=== PATIENT | female | born 1965 | race Caucasian/White ===

== ENCOUNTER 2018-05-06 22:51 | Emergency (ER) | payer OTHER ==
[~2018-05-06] VITALS: Ht 170.2 cm; Wt 63.5 kg
[2018-05-07] MEDS ORDERED: COLACE100 M1 PO (00:13)
[2018-05-07] MEDS ORDERED: PROCTOFOAM-HC 110 GM RC (00:13)
[2018-05-07] MEDS ORDERED: ANUSOL-HC25 M1 RC (00:13)
--- NOTE | 2018-05-07 00:14 | ED GI/GU/ABDOMINAL COMPLAINT ---
History of Present Illness General Chief Complaint: General Adult Stated Complaint: "HERNIA IN MY BUTT" PER PT Source: patient Exam Limitations: no limitations Vital Signs & Intake/Output Vital Signs & Intake/Output Vital Signs Date Time Temp Pulse Resp B/P B/P Pulse O2 O2 Flow FiO2 Mean Ox Delivery Rate 05/07 0016 98.5 76 20 124/65 99 Room Air 05/07 0015 97 Room Air 05/06 2300 98.6 96 16 128/79 98 Room Air ED Intake and Output 05/07 0000 05/06 1200 Intake Total Output Total Balance Patient 140 lb Weight Weight Reported by Patient Measurement Method Allergies Coded Allergies: No Known Allergies (05/06/18) Reconcile Medications Anusol Hc (Anusol-Hc) 25 MG SUPP.RECT 1 SUP RC BID HEMORRHOIDS Docusate Sodium (Colace) 100 MG CAPSULE 1 CAP PO BID CONSTIPATION Hydrocortisone/Pramoxine (Proctofoam-Hc 1%-1% Foam) 1 %-1 % FOAM 1 A RC BID HEMORRHOIDS Triage Note: PT TO ER C/C HEMMORHOID X 3 DAYS, PAIN 04/24 Triage Nurses Notes Reviewed? yes ? N Is pt currently ? No Onset: Gradual Duration: day(s): Timing: recent history Quality/Severity: moderate Location: rectal HPI: 52yo female presents to ED complaining of hemorrhoids 4 days. Patient states she has a history of hemorrhoids however they have Never been this severe. Patient states she has blood on toilet paper when she wipes. Patient can also feel bulging hemorrhoids outside her rectum which are tender. Patient endorses constipation recently. She denies fevers, chills, abdominal pain. (Pam Vences) Past History Travel History Traveled to [place] past 21 day No Medical History Any Pertinent Medical History? see below for history Surgical History Surgical History: non-contributory Psychosocial History What is your primary language Thai Tobacco Use: Never used Family History Hx Contributory? No (Pam Vences) Review of Systems Review of Systems Constitutional: Reports: no symptoms. EENTM: Reports: no symptoms. Respiratory: Reports: no symptoms. Cardiovascular: Reports: no symptoms. GI: Reports: see HPI. Genitourinary: Reports: no symptoms. Musculoskeletal: Reports: no symptoms. Skin: Reports: no symptoms. Neurological/Psychological: Reports: no symptoms. Hematologic/Endocrine: Reports: no symptoms. Immunologic/Allergic: Reports: no symptoms. All Other Systems: Reviewed and Negative (Pam Vences) Physical Exam Physical Exam General Appearance: well developed/nourished, no apparent distress, alert, awake Head: atraumatic, normal appearance Eyes: Bilateral: normal appearance. Ears, Nose, Throat, Mouth: hearing grossly normal Neck: normal inspection, supple, full range of motion Respiratory: no respiratory distress Gastrointestinal: see below Rectal: external hemorrhoids without thrombosis, no evidence of abscess, no active bleeding Back: normal inspection, normal range of motion Extremities: normal range of motion Neurologic/Psych: awake, alert, oriented x 3 Skin: intact, normal color, warm/dry Core Measures ACS in differential dx? No Sepsis Present: No Sepsis Focused Exam Completed? No (Pam Vences) Progress Differential Diagnosis: hemorrhoids, perirectal abscess, fistula, fissure Plan of Care: Dr. Whelan present for physical exam. Will initiate medications to help with symptomatic care hemorrhoids and refer patient to surgery for possible hemorrhoidectomy if necessary. Patient agrees with the plan of care. She is in no acute distress, nontoxic appearing, vital signs are stable. Initial ED EKG: none (Pam Vences) Departure Departure Disposition: HOME OR SELF CARE Condition: Stable Clinical Impression Primary Impression: Hemorrhoids Referrals: Patient Has No Primary Care Dr (PCP/Family) Chito SCOTT,Doroteo Carrasquillo Additional Instructions: Begin medications to help with hemorrhoids. Follow up with Dr. Dale for possible hemorrhoid removal. Return if worsening symptoms or concerns. Please note that there might be incidental findings in your evaluation that are unrelated to the current emergency department visit. Please notify your primary care doctor about this emergency department visit in order to obtain and review all of the testing performed so that these incidental findings can be monitored as needed. If you had an x-ray performed, please understand that some fractures may not be seen on the initial set of x-rays. If your symptoms persist you might need a repeat set of x-rays to check for such a fracture. If you had a laceration evaluated, please understand that foreign bodies such as glass or wood may not be visible to the naked eye or on plain x-rays. If the wound becomes red, swollen, increasingly more painful or if there is any drainage from the wound, please have it reevaluated by a physician for the possibility of a retained foreign body. If you're unable to follow up as outlined in the discharge instructions please return to the emergency department. Thank you for choosing the [facility] Emergency Department for your care. It was a pleasure to serve you today. Departure Forms: Customer Survey General Discharge Information Prescriptions: Current Visit Scripts Anusol Hc (Anusol-Hc) 1 SUP RC BID #14 SUP Hydrocortisone/Pramoxine (Proctofoam-Hc 1%-1% Foam) 1 A RC BID #10 GM Docusate Sodium (Colace) 1 CAP PO BID #60 CAP (Nayeli SIMMS,Pam Calhoun) PA/[employer] FIELD DATA COLLECTOR Co-Sign Statement Statement: ED Attending supervision documentation- [x] I saw and evaluated the patient. I have also reviewed all the pertinent lab results and diagnostic results. I agree with the findings and the plan of care as documented in the PA's/[employer] FIELD DATA COLLECTOR's documentation. pt with hemmorrhoid, no sign of thrombosis... pt referred to general surgery. [] I have reviewed the ED Record and agree with the PA's/[employer] FIELD DATA COLLECTOR's documentation. [] Additions or exceptions (if any) to the PAs/[employer] FIELD DATA COLLECTOR's note and plan are summarized below: [] (Cleopatra SCOTT,Fran Salcedo)
[2018-05-07 00:16] VITALS: BP 124/65
== END 2018-05-07 00:20 ==
LOC: ERH 22:51
DX: K64.9 Unspecified hemorrhoids (principal)